=== PATIENT | female | born 1940 | race Caucasian/White ===

== ENCOUNTER 2021-10-18 06:11 | Inpatient (IN) | payer OTHER, MEDICARE ==
[2021-10-14 16:08] VITALS: BMI 25.7
[2021-10-16] MEDS: ACETAMINOPHEN 500 MG TABLET (FP) PO SCH (04:45)
[2021-10-18] MEDS ORDERED: CEFAZOLIN 2 GM in DEXTROSE 5%-WATER - 50 ML IVPB ONE (06:26)
[2021-10-18] MEDS ORDERED: CELECOXIB 200 MG CAPSULE PO ONE (06:26)
[2021-10-18] MEDS ORDERED: TRANEXAMIC ACID 1000 MG/10 ML VIAL IVPUSH ONE (06:26)
[2021-10-18] MEDS ORDERED: CELECOXIB 200 MG CAPSULE ONE (06:32)
[2021-10-18] MEDS ORDERED: ceFAZolin SODIUM 1 GM VIAL ONE ×2 (07:06→07:11)
[2021-10-18] MEDS ORDERED: VANCOMYCIN 1,000 MG VIAL (RESTRICTED TO ID ONLY) ONE (07:06)
[2021-10-18] MEDS ORDERED: MIDAZOLAM HCL 2 MG/2 ML SINGLE DOSE VIAL ONE ×2 (07:10→08:07)
[2021-10-18] MEDS ORDERED: PROPOFOL 20 ML ONE (07:10)
[2021-10-18] MEDS ORDERED: TRANEXAMIC ACID 1000 MG/10 ML VIAL ONE ×2 (07:11→09:02)
[2021-10-18] MEDS ORDERED: DEXAMETHASONE SOD PHOSPHATE 4 MG/1 ML VIAL ONE (07:11)
[2021-10-18] MEDS ORDERED: KETOROLAC TROMETHAMINE 30 MG/1 ML VIAL ONE (07:11)
[2021-10-18] MEDS ORDERED: ONDANSETRON 4 MG/2 ML VIAL ONE (07:11)
[2021-10-18] MEDS ORDERED: BUPIVACAINE HCL 50 ML ONE (07:13)
[2021-10-18] MEDS ORDERED: BUPIVACAINE HCL/PF 0.5% (5 MG/ML) 30 ML VIAL IJ ONE (07:18)
[2021-10-18] MEDS ORDERED: MAG HYDROX/AL HYDROX/SIMETH 30 ML UNIT-DOSE CUP PO PRN (07:48)
[2021-10-18] MEDS ORDERED: ONDANSETRON 4 MG/2 ML VIAL IVPUSH PRN (07:48)
[2021-10-18] MEDS ORDERED: LACTATED RINGERS SOLUTION 1,000 ML IV SCH (08:00)
[2021-10-18] MEDS ORDERED: PATIENT'S OWN MEDICATION (NON-FORMULARY) (Multivitamin/Iron/Folic Acid [Centrum Adults Tab PO SCH (10:00)
[2021-10-18] MEDS ORDERED: oxyCODONE HCL 5 MG TABLET PO PRN (10:32)
[2021-10-18] MEDS: ACETAMINOPHEN 500 MG TABLET (FP) PO SCH ×2 (10:50→18:07)
[2021-10-18] MEDS: CEFAZOLIN SODIUM 2 GM in DEXTROSE 5%-WATER 100 ML IVPB SCH (15:30)
[2021-10-18] MEDS: KETOROLAC TROMETHAMINE 15 MG/ML VIAL IVPUSH SCH ×2 (15:31→21:11)
[2021-10-18] MEDS ORDERED: CEFAZOLIN SODIUM 2 GM in DEXTROSE 5%-WATER 100 ML IVPB SCH (16:00)
[2021-10-18] MEDS: amLODIPine BESYLATE 5 MG TABLET (FP) PO SCH (18:06)
[2021-10-18] MEDS: MULTIVITAMINS (DAILY MVI) TABLET (FP) PO SCH (18:06)
[2021-10-18] MEDS: PANTOPRAZOLE 40 MG TABLET PO SCH (18:06)
[2021-10-18] MEDS: SENNOSIDES/DOCUSATE COMBO (SENNA PLUS) TABLET (UD) PO SCH (21:10)
[2021-10-18] MEDS ORDERED: ATORVASTATIN CA 20 MG TABLET (FP) PO SCH (22:00)
[2021-10-19] MEDS: CEFAZOLIN SODIUM 2 GM in DEXTROSE 5%-WATER 100 ML IVPB SCH
[2021-10-19] MEDS: ACETAMINOPHEN 500 MG TABLET (FP) PO SCH ×2 (00:51→10:48)
[2021-10-19] MEDS: oxyCODONE HCL 5 MG TABLET PO PRN ×2 (04:45→13:25)
[2021-10-19] MEDS ORDERED: LEVOTHYROXINE NA 150 MCG TABLET PO SCH (07:00)
[2021-10-19] MEDS ORDERED: ASPIRIN 325 MG TABLET PO SCH (08:00)
[2021-10-19 08:18] LABS: HEMATOCRIT 26.5 % (32.4-45.2); HEMOGLOBIN 9.2 G/dL (10.7-15.3); MCH 32.3 pg (25.7-33.7); MCHC 34.5 g/dl (32.0-36.0); MEAN CELL VOLUME 93.8 fl (80-96); PLATELET COUNT 284.8 10^3/uL (134-434); RBC 2.83 10^6/uL (3.60-5.2); RDW 14.2 % (11.6-15.6); WHITE BLOOD COUNT 13.1 10^3/uL (4.0-10.8)
[2021-10-19 09:33] VITALS: RESP 16
[2021-10-19] MEDS: amLODIPine BESYLATE 5 MG TABLET (FP) PO SCH (09:34)
[2021-10-19] MEDS: MULTIVITAMINS (DAILY MVI) TABLET (FP) PO SCH (09:34)
[2021-10-19] MEDS: PANTOPRAZOLE 40 MG TABLET PO SCH (09:34)
[2021-10-19] MEDS: SENNOSIDES/DOCUSATE COMBO (SENNA PLUS) TABLET (UD) PO SCH (09:34)
[2021-10-19] MEDS ORDERED: IRON SUCROSE INJECTION 200 MG in SODIUM CHLORIDE 90 ML IVPB ONE (10:15)
[2021-10-19 14:11] VITALS: BP 101/51; PULSE 77; TEMP 98.4
== END 2021-10-19 16:56 | disposition home health service (06) | DRG 470 ==
LOC: FM/S 06:11
PROVIDERS: ADMIT Orthopaedic Surgery; ATTEND Orthopaedic Surgery
PROC: 8E0W0CZ Robotic Assisted Procedure of Trunk Region, Open Approach (ICD-10-PCS; 2021-10-18)
PROC: 0SR90JA Replacement of Right Hip Joint with Synthetic Substitute, Uncemented, Open Approach (ICD-10-PCS; principal; 2021-10-18 08:27)
DX: M16.11 Unilateral primary osteoarthritis, right hip (principal); I10 Essential (primary) hypertension; E03.9 Hypothyroidism, unspecified; D64.9 Anemia, unspecified
CPT/HCPCS: 36415; 73502-TC-RT-FY; 85027; 88305-TC; 88311-TC; 94760; 97010-GP; 97116-GP; 97162-GP; C9803-CS; J1756; U0003; U0005